=== PATIENT | female | born 1975 | race Caucasian/White ===

== ENCOUNTER 2019-08-02 07:37 | Inpatient (IN) | payer BC ==
[2019-07-31 16:27] LABS: CLARITY,URINE CLEAR (Clear); COLOR,URINE STRAW (Yellow); GLUCOSE, URINE NEGATIVE (Neg); KETONES,URINE NEGATIVE (Neg); LEUKOCYTE ESTERASE ,URINE NEGATIVE (Neg); NITRITES, URINE NEGATIVE (Neg); OCCULT BLOOD,URINE NEGATIVE (Neg); PROTEIN,URINE NEGATIVE (Neg); UROBILINOGEN,URINE 0.2 E.U/dL (0.2-1.0)
[2019-07-31 16:29] LABS: BASOPHILS # (AUTO) 0.1 X10'3 (0-0.2); BASOPHILS % (AUTO) 0.9 % (0-1); EOSINOPHILS # (AUTO) 0.1 X10'3 (0-0.9); LYMPHOCYTES # (AUTO) 1.6 X10'3 (1.1-4.8); MEAN CORPUSCULAR HEMOGLOBIN 30.9 PG (27.0-31.0); MEAN CORPUSCULAR HGB CONC 34.4 g/dL (33.0-36.5); MEAN CORPUSCULAR VOLUME 89.9 FL (78-98); MEAN PLATELET VOLUME 7.9 FL (7.4-10.4); MONOCYTES # (AUTO) 0.5 X10'3 (0-0.9); MONOCYTES % (AUTO) 9.2 % (2-12); NEUTROPHILS # (AUTO) 3.6 X10'3 (1.8-7.7); NEUTROPHILS % (AUTO) 60.9 % (42-75); PRE OP HEMATOCRIT 42.8 % (35.0-45.0); PRE OP HEMOGLOBIN 14.7 g/dL (12.0-16.0); PRE OP PLATELET COUNT 229 X10'3 (140-440); RED BLOOD COUNT 4.76 X10'6 (4.20-5.60); RED CELL DISTRIBUTION WIDTH 13.3 % (11.5-14.5)
[2019-07-31 16:31] LABS: UA COLLECTION TYPE CLN CATCH MIDSTREAM
[2019-07-31 16:37] LABS: PRE OP INR 1.1 INR; PRE OP PROTIME 10.9 SECONDS (9.0-12.0)
[2019-07-31 16:39] LABS: ALBUMIN 4.2 G/DL (3.4-5.0); ALBUMIN/GLOBULIN RATIO 1.2 (1.1-1.5); ALKALINE PHOSPHATASE 75 IU/L (46-116); BLOOD UREA NITROGEN 17 MG/DL (7-18); BUN/CREATININE RATIO 20.5 (6.6-38.0); CALCIUM 8.9 MG/DL (8.5-10.1); CHLORIDE 106 MMOL/L (99-107); CREATININE 0.83 MG/DL (0.40-0.90); PRE OP ALT 36 U/L (30-65); PRE OP ANION GAP 5 (8-16); PRE OP AST 13 U/L (10-37); PRE OP BILIRUB, TOTAL 0.6 MG/DL (0.0-1.0); PRE OP GLUCOSE 81 MG/DL (70-104); PRE OP SODIUM 143 MMOL/L (135-145); TOTAL CARBON DIOXIDE 32.3 MMOL/L (24-32); TOTAL PROTEIN 7.8 G/DL (6.4-8.2); eGFR 76 ML/MIN
[2019-07-31 17:05] LABS: HCG SERUM QL NEGATIVE
[~2019-08-02] VITALS: Ht 154.9 cm; Wt 62.0 kg
[2019-08-02] VITALS (19 sets, daily range): BP systolic 104–138; BP diastolic 55–85
[~2019-08-02 07:37] MED LIST: NO HOME MEDS; ceFOXitin 2 GM ADDvantage bag 100 ML IV ONE; famotidine 10mg tablet PO ONE; ringers solution, lacted 1,000 ML IV SCH
[2019-08-02] MEDS ORDERED: ringers solution, lacted 1,000 ML IV SCH (08:43)
[2019-08-02] MEDS ORDERED: meperidine/PF 25mg/ml syringe IV PRN ×2 (08:45)
[2019-08-02] MEDS ORDERED: proCHLORperazine 10 MG/2 ml inj IV PRN (08:45)
[2019-08-02] MEDS ORDERED: morphine 4 MG/ML inj SYRINge IV PRN (08:45)
[2019-08-02] MEDS ORDERED: ondansetron/PF 4mg/2ml inj IV PRN ×2 (08:45→12:45)
[2019-08-02] MEDS ORDERED: epiNEPHrine 1 mg/ml inj ONE (09:32)
[2019-08-02] MEDS ORDERED: neomy sulf/polymyxin B sulf. GU irrigation 1ml amp IR ONE (09:33)
[2019-08-02] MEDS ORDERED: BUPIVAcaine/PF 2.5 mg/ml (0.25%) 30ml vial ONE (09:33)
[2019-08-02] MEDS ORDERED: vasoPRESSIN 20 units/ml inj. ONE (09:33)
[2019-08-02] MEDS ORDERED: rocuronium 10mg/ml inj IV ONE (09:53)
[2019-08-02] MEDS ORDERED: glycopyrrolate 0.2mg/ml inj ONE (09:53)
[2019-08-02] MEDS ORDERED: neostigmine methylsulfate 1 MG/ML 10ml vial ONE (09:53)
[2019-08-02] MEDS ORDERED: dexamethasone sod phosphate 10mg/ml inj ONE (09:53)
[2019-08-02] MEDS ORDERED: sevoflurane 250ml liquid IH ONE (09:53)
[2019-08-02] MEDS ORDERED: midazolam 2 mg/2 ml injection ONE (10:00)
[2019-08-02] MEDS ORDERED: fentaNYL /PF 50mcg/ml 5ml ampule ONE (10:00)
[2019-08-02] MEDS ORDERED: propofol inj 20 ML IV ONE (10:02)
[2019-08-02] MEDS ORDERED: LIDOcaine 2% (20mg/ml) 5ml vial ONE (10:02)
[2019-08-02] MEDS ORDERED: ondansetron/PF 4mg/2ml inj ONE (10:07)
[2019-08-02] MEDS ORDERED: acetaminophen 1,000mg/100ml IV 100 ML IV ONE (10:13)
[2019-08-02] MEDS ORDERED: clindamycin phosphate 40gm vag cream ONE (11:15)
[2019-08-02] MEDS ORDERED: fluoroscein sod 10% (100mg/ml) 5ml vial ONE (12:19)
[2019-08-02] MEDS ORDERED: magnesium hydroxide 30ml (MOM) UD suspension PO PRN (12:45)
[2019-08-02] MEDS ORDERED: metoclopramide 5 mg/ml inj IV PRN (12:45)
[2019-08-02] MEDS ORDERED: diphenhydrAMINE 50 mg/ml inj IV PRN (12:45)
[2019-08-02] MEDS ORDERED: HYDROcodone/acetaminophen 10/325mg tab PO PRN ×2 (12:45)
[2019-08-02] MEDS ORDERED: normal saline 500ml IV soln 500 ML IV PRN (12:45)
[2019-08-02] MEDS ORDERED: temazepam 15mg capsule PO PRN (12:45)
[2019-08-02] MEDS ORDERED: LORazepam 2 mg/ml vial IV PRN (12:45)
--- NOTE | 2019-08-02 12:53 | NUR ---
Received from OR via , accompanied by Anesthesiologist DR MOSS and report given by Anesthesiolgist. AWAKENS TO VOICE. VITALS STABLE. DRESSINGS DI. CURLY PAIN. LÓPEZ WITH CLEAR FLORECENT URINE.
[2019-08-02] MEDS: meperidine/PF 25mg/ml syringe IV PRN ×2 (13:11→13:23)
[2019-08-02] MEDS: morphine 4 MG/ML inj SYRINge IV PRN ×2 (13:31→14:01)
--- NOTE | 2019-08-02 14:23 | NUR ---
Report called to receiving nurse. Transferred via BED Belongings . Special Issues communicated to receiving nurse. AWAKE AND ORIENTED. VITALS STABLE. DRESSINGS DI. STATES PAIN IMPROVING. TO SURGICAL RM 350A AT THIS TIME.
[2019-08-02] MEDS: ringers solution, lacted 1,000 ML IV SCH ×3 (14:51→21:56)
--- NOTE | 2019-08-02 18:10 | NUR ---
Problems reprioritized. Patient report given, questions answered & plan of care reviewed with PRUDENCE RN.
--- NOTE | 2019-08-02 18:20 | NUR ---
Problems reprioritized. Patient report given, questions answered & plan of care reviewed with SABI STEWART.
--- NOTE | 2019-08-02 19:23 | NUR ---
Patient in room [facility]. I have received report from Rolanda STEWART and had the opportunity to ask questions and assume patient care.
[2019-08-02] MEDS ORDERED: magnesium 4gm in 100ml NS 100 ML IV PRN (19:30)
[2019-08-02] MEDS ORDERED: potassium CL 10mEq/100ml bag 100 ML IV PRN (19:30)
[2019-08-02] MEDS ORDERED: magnesium Cl slow-release 64mg tablet PO PRN (19:30)
[2019-08-02] MEDS ORDERED: magnesium 2GM in 50ml NS 50 ML IV PRN (19:30)
[2019-08-02] MEDS ORDERED: potassium Cl 20 mEq SR tablet PO PRN (19:30)
[2019-08-02] MEDS: docusate sod 100mg capsule PO SCH (20:37)
[2019-08-02] MEDS: potassium Cl 20 mEq SR tablet PO PRN (21:44)
[2019-08-02] MEDS: ketorolac trometh. 30mg/ml inj. IV PRN (21:54)
[2019-08-03] VITALS: BP 113/66
[2019-08-03] MEDS: potassium Cl 20 mEq SR tablet PO PRN (02:32)
[2019-08-03] MEDS: ringers solution, lacted 1,000 ML IV SCH (04:38)
[2019-08-03 05:28] LABS: ALBUMIN 3.1 G/DL (3.4-5.0); ANION GAP 7 (8-16); BLOOD UREA NITROGEN 8 MG/DL (7-18); BUN/CREATININE RATIO 10.4 (6.6-38.0); CHLORIDE 106 MMOL/L (99-107); CREATININE 0.77 MG/DL (0.40-0.90); GLUCOSE 106 MG/DL (70-104); MAGNESIUM 1.8 MG/DL (1.5-2.4); POTASSIUM 4.7 MMOL/L (3.5-5.1); SODIUM 137 MMOL/L (135-145); TOTAL CARBON DIOXIDE 24.5 MMOL/L (24-32); eGFR 83 ML/MIN
[2019-08-03 05:32] LABS: BASOPHILS % (AUTO) 0.1 % (0-1); EOSINOPHILS % (AUTO) 0 % (0-6); HEMATOCRIT 35.1 % (35.0-45.0); HEMOGLOBIN 12.5 g/dl (12.0-16.0); LYMPHOCYTES # (AUTO) 0.8 X10'3 (1.1-4.8); LYMPHOCYTES % (AUTO) 8.9 % (21-51); MEAN CORPUSCULAR HEMOGLOBIN 31.9 PG (27.0-31.0); MEAN CORPUSCULAR HGB CONC 35.6 g/dL (33.0-36.5); MEAN CORPUSCULAR VOLUME 89.5 FL (78-98); MONOCYTES # (AUTO) 0.8 X10'3 (0-0.9); MONOCYTES % (AUTO) 8.5 % (2-12); NEUTROPHILS # (AUTO) 7.8 X10'3 (1.8-7.7); NEUTROPHILS % (AUTO) 82.5 % (42-75); PLATELET COUNT 172 X10'3 (140-440); RED BLOOD COUNT 3.92 X10'6 (4.20-5.60); RED CELL DISTRIBUTION WIDTH 13.2 % (11.5-14.5); WHITE BLOOD COUNT 9.5 X10'3 (4.5-11.0)
--- NOTE | 2019-08-03 06:56 | NUR ---
Patient in room [facility] 350. I have received report from NATALI STEWART and had the opportunity to ask questions and assume patient care.
[2019-08-03 07:00] VITALS: BP 96/54
[2019-08-03] MEDS: docusate sod 100mg capsule PO SCH (07:13)
[2019-08-03] MEDS ORDERED: enoxaparin 40mg/0.4ml syringe SQ SCH (08:00)
[2019-08-03] MEDS: ketorolac trometh. 30mg/ml inj. IV PRN (08:27)
--- NOTE | 2019-08-03 13:24 | NUR ---
LÓPEZ CATH PLACED, PT TOLERATED WELL
--- NOTE | 2019-08-03 13:56 | NUR ---
PT DISCHARGED IN STABLE CONDITION. LEFT FACILITY IN PRIVATE VEHICLE. IV DC [facility] INTACT. FC PLACED FOR DC HOME, PT HAS MADE AN APPT WITH DR GORDON OFFICE TO HAVE FC REMOVED. ALL BELONGINGS IN HAND. FOLLOW UP INSTRUCTIONS GIVEN, FC EDUCATION GIVEN, PT VERBALIZED UNDERSTANDING. ALL QUESTIONS ANSWERED. Addendum: 08/03/19 at 1358 by Sandie Campbell RN Amended: Links added.
== END 2019-08-03 14:28 | disposition home or self-care (01) | DRG 743 ==
LOC: PAS 07:37 → SUR 3N 15:08
PROVIDERS: ADMIT Obstetrics & Gynecology Obstetrics; ATTEND Obstetrics & Gynecology Obstetrics
PROC: 0UT7FZZ Resection of Bilateral Fallopian Tubes, Via Natural or Artificial Opening With Percutaneous Endoscopic Assistance (ICD-10-PCS; 2019-08-02)
PROC: 0USG4ZZ Reposition Vagina, Percutaneous Endoscopic Approach (ICD-10-PCS; 2019-08-02)
PROC: 0UQF4ZZ Repair Cul-de-sac, Percutaneous Endoscopic Approach (ICD-10-PCS; 2019-08-02)
PROC: 0JQC3ZZ Repair Pelvic Region Subcutaneous Tissue and Fascia, Percutaneous Approach (ICD-10-PCS; 2019-08-02)
PROC: 0TJB8ZZ Inspection of Bladder, Via Natural or Artificial Opening Endoscopic (ICD-10-PCS; 2019-08-02)
PROC: 0UT9FZZ Resection of Uterus, Via Natural or Artificial Opening With Percutaneous Endoscopic Assistance (ICD-10-PCS; principal; 2019-08-02 09:53)
DX: N81.9 Female genital prolapse, unspecified (principal); N87.9 Dysplasia of cervix uteri, unspecified
CPT/HCPCS: Z7506; Z7508; 36415; 71046; 80048; 80053; 81003; 82948; 83735; 84703; 85025; 85610; 85730; 86885; 86900; 86901; 93005; A4314; A4618; A7000; G0378; J0131; J0171; J0694; J1100; J1650; J1885; J2001; J2175; J2250; J2270; J2405; J2704; J2710; J2765; J3010; J3490; J7040; J7120